=== PATIENT | female | born 1940 | race African-American/Black ===

== ENCOUNTER → 2016-04-22 | Outpatient (CLI) | payer BC ==
[~2016-04-22] MED LIST: ALBUAER19 INH; ESTR1CRE PV; LISI-725 PO; LPT/40 PO; MOME50SP5; MULT-506 PO; OMEG10007 PO; PRLSR20 PO; SERT100T PO; TUMERIC PO; [UNRECOGNIZED DRUG - CODE] PO; [UNRECOGNIZED DRUG - OTHER] TOP
[2016-04-22 12:44] LABS: ESTIMATED AVERAGE GLUCOSE 131 mg/dl; HA1C FLAG Normal (Normal)
== END | disposition home or self-care (01) ==
LOC: C.LAB1850 10:47
PROVIDERS: ATTEND Internal Medicine
DX: E78.00 Pure hypercholesterolemia, unspecified (principal); E11.9 Type 2 diabetes mellitus without complications

== ENCOUNTER → 2016-07-22 | Outpatient (CLI) | payer BC ==
[2016-07-22 12:27] LABS: BASO % 0.2 %; BASO ABS # 0.02 K/uL (0-0.2); COMPLETE YES; EOS % 0.8 %; HEMATOCRIT 48.6 % (37-47); IG% 0.2 %; LYMPH % 18.7 %; LYMPH ABS # 2.44 K/uL (1.2-3.4); MEAN CELL VOLUME 88.8 fL (80-100); MEAN CORPUSCULAR HEMOGLOBIN 28.7 pg (25-34); MEAN CORPUSCULAR HGB CONC 32.3 g/dl (32-36); MEAN PLATELET VOLUME 9.5 fL (7.4-10.4); MONO % 6.7 %; NEUT % 73.4 %; PLATELET COUNT 276 K/uL (130-400); RED BLOOD COUNT 5.47 M/uL (4.2-5.4); WHITE BLOOD COUNT 13.06 K/uL (4.8-10.8)
[2016-07-22 12:41] LABS: ALT/SGPT 65 U/L (12-78); AST/SGOT 38 U/L (15-37); BLOOD UREA NITROGEN 61 mg/dl (7-18); BUN/CREATININE RATIO 27.8 (10-20); CALCIUM 9.6 mg/dl (8.5-10.1); CARBON DIOXIDE 21 mmol/L (21-32); CHLORIDE 110 mmol/L (98-107); GLUCOSE 116 mg/dl (70-99); POTASSIUM 4.6 mmol/L (3.5-5.1); SODIUM 140 mmol/L (136-145)
[2016-07-22 12:52] LABS: CHOLESTEROL 192 mg/dl (0-200); HDL CHOLESTEROL 64 mg/dl; LDL CHOLESTEROL CALCULATED 112 mg/dl; TRIGLYCERIDES 80 mg/dl (0-150); VERY LOW DENSITY LIPOPROT CALC 16 mg/dl
[2016-07-22 13:29] LABS: ESTIMATED AVERAGE GLUCOSE 126 mg/dl; HA1C FLAG Normal (Normal)
== END | disposition home or self-care (01) ==
LOC: C.LAB1850 10:31
PROVIDERS: ATTEND Internal Medicine
DX: E11.9 Type 2 diabetes mellitus without complications (principal)

== ENCOUNTER → 2016-10-29 | Outpatient (CLI) | payer BC ==
[2016-10-29 15:59] LABS: BLOOD UREA NITROGEN 38 mg/dl (7-18); BUN/CREATININE RATIO 16.4 (10-20); CALCIUM 9.7 mg/dl (8.5-10.1); CARBON DIOXIDE 23 mmol/L (21-32); CHLORIDE 109 mmol/L (98-107); GLUCOSE 91 mg/dl (70-99); POTASSIUM 3.9 mmol/L (3.5-5.1); SODIUM 142 mmol/L (136-145)
[2016-10-30 08:22] LABS: ESTIMATED AVERAGE GLUCOSE 126 mg/dl; HA1C FLAG Normal (Normal)
== END | disposition home or self-care (01) ==
LOC: C.LAB1850 13:45
PROVIDERS: ATTEND Internal Medicine
DX: E11.9 Type 2 diabetes mellitus without complications (principal)

== ENCOUNTER → 2016-12-21 | Outpatient (CLI) | payer BC ==
[2016-12-21 13:11] LABS: BASO % 0.2 %; BASO ABS # 0.02 K/uL (0-0.2); COMPLETE YES; EOS % 1.4 %; HEMATOCRIT 49.1 % (37-47); IG% 0.3 %; LYMPH % 31.6 %; LYMPH ABS # 3.02 K/uL (1.2-3.4); MEAN CELL VOLUME 92.5 fL (80-100); MEAN CORPUSCULAR HEMOGLOBIN 28.6 pg (25-34); MEAN PLATELET VOLUME 9.5 fL (7.4-10.4); MONO % 6.6 %; NEUT % 59.9 %; PLATELET COUNT 302 K/uL (130-400); RED BLOOD COUNT 5.31 M/uL (4.2-5.4); WHITE BLOOD COUNT 9.55 K/uL (4.8-10.8)
[2016-12-21 13:48] LABS: BLOOD UREA NITROGEN 54 mg/dl (7-18); BUN/CREATININE RATIO 20.9 (10-20); CALCIUM 10.1 mg/dl (8.5-10.1); CARBON DIOXIDE 24 mmol/L (21-32); CHLORIDE 104 mmol/L (98-107); GLUCOSE 104 mg/dl (70-99); POTASSIUM 3.7 mmol/L (3.5-5.1); SODIUM 138 mmol/L (136-145)
== END | disposition home or self-care (01) ==
LOC: C.LAB1850 11:29
PROVIDERS: ATTEND Internal Medicine
DX: F32.9 Major depressive disorder, single episode, unspecified (principal)

== ENCOUNTER → 2017-02-10 | Outpatient (CLI) | payer BC ==
[2017-02-10 17:22] LABS: BASO % 0.4 %; BASO ABS # 0.03 K/uL (0-0.2); COMPLETE YES; HEMATOCRIT 44.4 % (37-47); IG% 0.3 %; LYMPH % 27.2 %; LYMPH ABS # 2.09 K/uL (1.2-3.4); MEAN CORPUSCULAR HEMOGLOBIN 28.9 pg (25-34); MEAN CORPUSCULAR HGB CONC 32.4 g/dl (32-36); NEUT % 61.1 %; PLATELET COUNT 255 K/uL (130-400); RED BLOOD COUNT 4.99 M/uL (4.2-5.4); WHITE BLOOD COUNT 7.69 K/uL (4.8-10.8)
[2017-02-10 18:05] LABS: ALT/SGPT 40 U/L (12-78); AST/SGOT 36 U/L (15-37); BLOOD UREA NITROGEN 25 mg/dl (7-18); BUN/CREATININE RATIO 13.4 (10-20); CALCIUM 9.7 mg/dl (8.5-10.1); CARBON DIOXIDE 21 mmol/L (21-32); CHLORIDE 111 mmol/L (98-107); CREATININE 1.84 mg/dl (0.60-1.20); GLUCOSE 108 mg/dl (70-99); SODIUM 141 mmol/L (136-145)
[2017-02-10 18:16] LABS: CHOLESTEROL 154 mg/dl (0-200); CHOLESTEROL/HDL RATIO 3.9; HDL CHOLESTEROL 40 mg/dl; LDL CHOLESTEROL CALCULATED 85 mg/dl; TRIGLYCERIDES 145 mg/dl (0-150); VERY LOW DENSITY LIPOPROT CALC 29 mg/dl
[2017-02-11 06:53] LABS: ESTIMATED AVERAGE GLUCOSE 128 mg/dl; HA1C FLAG Normal (Normal)
== END | disposition home or self-care (01) ==
LOC: C.LAB1850 16:01
PROVIDERS: ATTEND Internal Medicine
DX: E11.9 Type 2 diabetes mellitus without complications (principal)

== ENCOUNTER → 2017-03-26 | Outpatient (CLI) | payer BC | END | disposition home or self-care (01) | LOC: C.PAPS 11:55 | PROVIDERS: ATTEND Obstetrics & Gynecology | DX: Z12.4 Encounter for screening for malignant neoplasm of cervix (principal) ==

== ENCOUNTER → 2017-03-30 | Outpatient (CLI) | payer BC ==
--- NOTE | 2017-03-31 13:40 | MAMMOGRAPHY REPORT ---
BILATERAL DIGITAL SCREENING MAMMOGRAM WITH CAD: 03/30/2017 CLINICAL HISTORY: Routine screening. Patient has no complaints. TECHNIQUE: Bilateral CC and MLO views were obtained. Additional MLO views were obtained with more an terior compression and a right XCCL view was also obtained. Current study was also evaluated with a Computer Aided Detection (CAD) system. COMPARISON: Comparison is made to exams dated: 10/29/2015 mammogram, 10/25/2014 mammogram, 10/24/2013 m ammogram, 10/21/2012 mammogram, 10/02/2011 mammogram, and 06/27/2010 mammogram - [facility]. BREAST COMPOSITION: The tissue of both breasts is almost entirely fatty. FINDINGS: There are stable benign calcifications in the right breast. No suspicious mass, big data platform architect ural distortion or cluster of suspicious microcalcifications is seen. IMPRESSION: ACR BI-RADS CATEGORY 1: NEGATIVE There is no mammographic evidence of malignancy. A 1 year screening mammogram is recommended. The pa tient will receive written notification of the results. Approximately 10% of breast cancers are not detected with mammography. A negative mammographic report should not delay biopsy if a clinically suggestive mass is present. Elizabeth Gardner M.D. ay/:03/30/2017 15:30:50 Business Performance Advisor: Paris GORE(Tara)(M), [facility] letter sent: Normal 1/2 BI-RADS Code: ACR BI-RADS Category 1: Negative
== END | disposition home or self-care (01) ==
LOC: C.MAMM 14:19
PROVIDERS: ATTEND Internal Medicine
DX: Z12.31 Encounter for screening mammogram for malignant neoplasm of breast (principal)

== ENCOUNTER → 2017-11-19 | Outpatient (CLI) | payer BC ==
--- NOTE | 2017-11-19 13:36 | DIAGNOSTIC IMAGING REPORT ---
L WRIST MIN 3 VIEWS ROUTINE CLINICAL HISTORY: 77 years-old Female presenting with LEFT WRIST PAIN, ACUTE. TECHNIQUE: Frontal, bilateral, and lateral views of the left wrist were obtained. COMPARISON: None. FINDINGS: Osteopenia. No acute fracture or malalignment. No advanced degenerative change. No radiographic soft tissue abnormality. IMPRESSION: No acute osseous injury. Electronically signed by: Suresh Josue M.D. 11/19/2017 1:34 PM Dictated Date/Time: 11/19/2017 1:33 PM
== END | disposition home or self-care (01) ==
LOC: C.RAD1850 13:13
PROVIDERS: ATTEND Physician Assistant Medical
DX: M25.532 Pain in left wrist (principal)

== ENCOUNTER 2019-05-09 15:53 | Observation (INO) ==
[2019-05-09] MEDS ORDERED: SODIUM CHLORIDE 0.9% 1000ML 500 ML IV ONE (16:17)
--- NOTE | 2019-05-09 16:39 | Emergency Department Note ---
Entered by Haydee Candelaria acting as a scribe for León Tran DO History of Present Illness General Chief complaint: Lethargic Stated complaint: WEAK, LETHARGIC, Time Seen by Provider: 05/09/19 16:11 Source: patient History of Present Illness Provider complaint: Lethargic Onset (ago): hour(s) 1 Location: upper extremity and lower extremity Relieved By: + none Exacerbated By: + movement Associated symptoms: + denies other symptoms (Rhinorrhea, sore throat ); no chest pain, no cough, no headaches and no shortness of breath The patient is a 79 year old female who presents to the Emergency Room with complaints of generalized lethargy that began 1 hour ago. According to EMS, the patient was found by a home health commercial cleaner on her floor and registered a blood sugar of 149 when EMS arrived. The patient states that her symptoms are exacerbated by movement and not relieved by anything specific. The patient denies experiencing any chest pain, shortness of breath, rhinorrhea, sore throat, cough, or headache. Home Medications Home Medications Medication Instructions Recorded Confirmed Type albuterol sulfate 90 mcg/actuation 2 puffs INHALATION Q4H PRN #1 gm 12/27/18 History aerosol inhaler atorvastatin 40 mg tablet 40 mg PO DAILY #90 tab 12/27/18 05/09/19 History mometasone 50 mcg/actuation nasal 2 sprays INTRANASAL DAILY #51 gm 12/27/18 05/09/19 History spray omeprazole 20 mg tablet,delayed 20 mg PO DAILY PRN #90 tab 12/27/18 05/09/19 Hi story release cholecalciferol (vitamin D3) 2,000 2,000 units PO DAILY 03/17/19 05/09/19 Histo ry unit tablet coenzyme Q10 200 mg capsule 200 mg PO DAILY 03/17/19 05/09/19 History multivitamin 1 tab PO DAILY 03/17/19 05/09/19 History lisinopril 20 mg tablet 20 mg PO DAILY #90 tab 04/21/19 05/09/19 Rx bupropion HCl 100 mg tablet 100 mg PO BID #60 tab 04/25/19 05/09/19 Rx cinnamon bark 500 mg PO DAILY 05/09/19 05/09/19 History turmeric 400 mg PO DAILY 05/09/19 05/09/19 History Allergies Allergy/AdvReac Type Severity Reaction Status Date / Time Penicillins Allergy Mild UNKNOWN Verified 05/09/19 16:50 Iodinated Contrast Media Allergy Unknown TOLD BY Verified 05/09/19 16:50 NOT TO USE CONTRAST DYE Halogenated Anesthetics AdvReac Unknown INTUBATION Uncoded 05/09/19 16:50 GASES-PROLONGED RECOVERY Past Med/Surg History Medical History CKD (chronic kidney disease), stage III Depression (Chronic) Diabetes, type 1.5, controlled, managed as type 2 Fall GERD (gastroesophageal reflux disease) HTN (hypertension) Hypercholesterolemia with endogenous hyperglyceridemia Surgical History History of cataract surgery History of tonsillectomy History of total abdominal hysterectomy Family History Sister Bone cancer Social History Preferred Language: Swedish Feels Safe at Home: Yes Smoking Status: Never smoker Hx Alcohol Use: No Physical Activity Frequency: Does not Exercise Review of Systems See HPI for pertinent positives & negatives. and A total of 10 systems reviewed and were otherwise negative Physical Exam Vital Signs Vital Signs - 24 hr 05/09/19 16:02 05/09/19 16:07 05/09/19 16:09 Temperature 35.9 C L Temperature Source Rectal Pulse Rate 74 74 68 Pulse Rate from SpO2 Sensor 71 69 Respiratory Rate 14 17 16 Respiratory Effort / Characteristics Non-Labored Spontaneous Respiratory Depth Normal Respiratory Pattern Regular Blood Pressure 113/58 L 113/58 L Blood Pressure Mean 90 76 Blood Pressure Position Lying Pulse Oximetry 95 96 97 Oxygen Delivery Method Room Air Sepsis Recent Fever Within 48 Hours No Sepsis Action Taken by Nursing No Action Required 05/09/19 16:10 05/09/19 16:16 05/09/19 16:20 Temperature Temperature Source Pulse Rate 68 68 72 Pulse Rate from SpO2 Sensor 68 68 73 Respiratory Rate 22 18 20 Respiratory Effort / Characteristics Respiratory Depth Respiratory Pattern Blood Pressure 118/41 L Blood Pressure Mean 54 Blood Pressure Position Pulse Oximetry 93 97 96 Oxygen Delivery Method Sepsis Recent Fever Within 48 Hours Sepsis Action Taken by Nursing 05/09/19 16:30 05/09/19 16:31 05/09/19 16:40 Temperature Temperature Source Pulse Rate 69 70 68 Pulse Rate from SpO2 Sensor 69 67 Respiratory Rate 19 19 20 Respiratory Effort / Characteristics Respiratory Depth Respiratory Pattern Blood Pressure 104/42 L Blood Pressure Mean 84 Blood Pressure Position Pulse Oximetry 100 100 Oxygen Delivery Method Sepsis Recent Fever Within 48 Hours Sepsis Action Taken by Nursing 05/09/19 17:22 05/09/19 17:23 05/09/19 17:30 Temperature Temperature Source Pulse Rate 60 58 L 53 L Pulse Rate from SpO2 Sensor Respiratory Rate 18 17 17 Respiratory Effort / Characteristics Respiratory Depth Respiratory Pattern Blood Pressure 115/71 122/58 L Blood Pressure Mean 80 70 Blood Pressure Position Pulse Oximetry Oxygen Delivery Method Sepsis Recent Fever Within 48 Hours Sepsis Action Taken by Nursing 05/09/19 17:31 05/09/19 18:00 05/09/19 18:01 Temperature Temperature Source Pulse Rate 58 L 73 68 Pulse Rate from SpO2 Sensor Respiratory Rate 17 15 17 Respiratory Effort / Characteristics Respiratory Depth Respiratory Pattern Blood Pressure 119/63 Blood Pressure Mean 73 Blood Pressure Position Pulse Oximetry Oxygen Delivery Method Sepsis Recent Fever Within 48 Hours Sepsis Action Taken by Nursing 05/09/19 18:30 05/09/19 18:31 Temperature Temperature Source Pulse Rate 64 67 Pulse Rate from SpO2 Sensor Respiratory Rate 18 15 Respiratory Effort / Characteristics Respiratory Depth Respiratory Pattern Blood Pressure 129/64 Blood Pressure Mean 70 Blood Pressure Position Pulse Oximetry Oxygen Delivery Method Sepsis Recent Fever Within 48 Hours Sepsis Action Taken by Nursing VITAL SIGNS: were reviewed as above. GENERAL:Non-toxic in appearance. Generalized weakness. SKIN: Warm dry and pink. HEAD: Normocephalic and atraumatic. OROPHARYNX: Is clear and moist NECK: Supple without lymphadenopathy or meningismus. LUNGS: clear. HEART: Regular rate and rhythm. ABDOMEN: Soft and nontender. EXTREMITIES: Warm and well perfused. NEUROLOGICALLY: Awake alert and oriented without focal deficit. Cranial nerves 2-12 are intact. There is no pronator drift. Cerebellar testing is within normal limits. There is no nystagmus. There is no facial droop. Speech is clear. Vision is grossly normal. MUSCULOSKELETAL: Good muscle tone. No evidence of trauma. Course Course 161: Past medical records reviewed. The patient was evaluated in room C10. A complete history and physical exam was performed. 1847: I spoke with Dr. John- Hospitalist about the patient's case and he will accept the patient for further evaluation. Administered Medications Discontinued Medications Sodium Chloride (Nss 1000ml) 500 mls @ 999 mls/hr IV .Q31M ONE Stop: 05/09/19 16:47 Last Infusion: 05/09/19 17:19 Dose: 0 mls/hr Documented by: [id number] Admin: 05/09/19 16:20 Dose: 999 mls/hr Documented by: [id number] Medical Decision Making Differential Diagnosis Differential Diagnosis includes but is not limited to dehydration, stroke, anemia, hypoglycemia, hyponatremia, hypernatremia, urinary tract infection, pneumonia, bronchitis, sepsis, gastroenteritis, additional abdominal pathology, metabolic abnormalities and infections. Medical Records Attestation: I reviewed the patient's medical records. Home Medications Current Medication List: was personally reviewed by me Laboratory Data Attestation: I reviewed the patient's lab results. Result diagrams: 05/09/19 16:31 05/09/19 16:31 Lab Results 05/09/19 05/09/19 05/09/19 Range/Units 16:31 16:31 16:31 WBC 11.21 H (4.8-10.8) K/uL RBC 4.98 (4.2-5.4) M/uL Hgb 14.2 (12.0-16.0) g/dL Hct 43.1 (37-47) % MCV 86.5 (80-100) fL MCH 28.5 (25-34) pg MCHC 32.9 (32-36) g/dL RDW Std Deviation 44.7 (36.4-46.3) fL RDW Coeff of Alicja 14.2 (11.5-14.5) % Plt Count 221 (130-400) K/uL MPV 8.8 (7.4-10.4) fL Immature Gran % (Auto) 0.4 % Neut % (Auto) 69.2 % Lymph % (Auto) 22.9 % [place] % (Auto) 5.9 % Eos % (Auto) 1.4 % Baso % (Auto) 0.2 % Immature Gran # (Auto) 0.04 H (0.00-0.02) K/uL Neut # (Auto) 7.76 H (1.4-6.5) K/uL Lymph # (Auto) 2.57 (1.2-3.4) K/uL [place] # (Auto) 0.66 H (0.11-0.59) K/uL Eos # (Auto) 0.16 (0-0.5) K/uL Baso # (Auto) 0.02 (0-0.2) K/uL PT 11.9 (9.0-12.0) Seconds INR 1.2 H (0.9-1.1) Sodium 141 (136-145) mmol/L Potassium 3.8 (3.5-5.1) mmol/L Chloride 113 H (98-107) mmol/L Carbon Dioxide 19 L (21-32) mmol/L Anion Gap 9.0 (3-11) BUN 22 H (7-18) mg/dl Creatinine 2.34 H (0.6-1.2) mg/dl Est Cr Clr Drug Dosing 20.9 ml/min Est GFR ( Amer) 22.5 Est GFR (Non-Af Amer) 19.4 BUN/Creatinine Ratio 9.2 L (10-20) Glucose 146 H (70-99) mg/dl Lactate (0.4-2.0) mmol/L Calcium 10.3 H (8.5-10.1) mg/dl Total Bilirubin 0.6 (0.2-1) mg/dl AST 23 (15-37) U/L ALT 27 (12-78) U/L Alkaline Phosphatase 102 (45-117) U/L Ammonia (11-32) umol/L Total Creatine Kinase 98 (26-192) U/L Troponin I < 0.015 (0-0.045) ng/ml Total Protein 6.9 (6.4-8.2) gm/dl Albumin 3.4 (3.4-5.0) gm/dl Globulin 3.5 (2.5-4.0) gm/dl Albumin/Globulin Ratio 1.0 (0.9-2) TSH 5.470 H (0.300-4.500) uIu/ml Free T4 1.03 (0.8-1.6) ng/dl Urine Color Urine Appearance (Clear) Urine pH (4.5-7.5) Ur Specific [place] (1.000-1.030) Urine Protein (Negative) Urine Glucose (UA) (Negative) Urine Ketones (Negative) Urine Blood (Negative) Urine Nitrite (Negative) Urine Bilirubin (Negative) Urine Urobilinogen (Negative) Ur Leukocyte Esterase (Negative) Urine WBC (Auto) (0-5) /hpf Urine RBC (Auto) (0-4) /hpf U Hyaline Cast (Auto) (0-5) /lpf U Epithel Cells (Auto) (0-5) /lpf Urine Bacteria (Auto) (Negative) Urine Mucus (None Prsent) 05/09/19 05/09/19 05/09/19 Range/Units 16:31 16:31 18:00 WBC (4.8-10.8) K/uL RBC (4.2-5.4) M/uL Hgb (12.0-16.0) g/dL Hct (37-47) % MCV (80-100) fL MCH (25-34) pg MCHC (32-36) g/dL RDW Std Deviation (36.4-46.3) fL RDW Coeff of Alicja (11.5-14.5) % Plt Count (130-400) K/uL MPV (7.4-10.4) fL Immature Gran % (Auto) % Neut % (Auto) % Lymph % (Auto) % [place] % (Auto) % Eos % (Auto) % Baso % (Auto) % Immature Gran # (Auto) (0.00-0.02) K/uL Neut # (Auto) (1.4-6.5) K/uL Lymph # (Auto) (1.2-3.4) K/uL [place] # (Auto) (0.11-0.59) K/uL Eos # (Auto) (0-0.5) K/uL Baso # (Auto) (0-0.2) K/uL PT (9.0-12.0) Seconds INR (0.9-1.1) Sodium (136-145) mmol/L Potassium (3.5-5.1) mmol/L Chloride (98-107) mmol/L Carbon Dioxide (21-32) mmol/L Anion Gap (3-11) BUN (7-18) mg/dl Creatinine (0.6-1.2) mg/dl Est Cr Clr Drug Dosing ml/min Est GFR ( Amer) Est GFR (Non-Af Amer) BUN/Creatinine Ratio (10-20) Glucose (70-99) mg/dl Lactate 2.5 H* (0.4-2.0) mmol/L Calcium (8.5-10.1) mg/dl Total Bilirubin (0.2-1) mg/dl AST (15-37) U/L ALT (12-78) U/L Alkaline Phosphatase (45-117) U/L Ammonia 13.0 (11-32) umol/L Total Creatine Kinase (26-192) U/L Troponin I (0-0.045) ng/ml Total Protein (6.4-8.2) gm/dl Albumin (3.4-5.0) gm/dl Globulin (2.5-4.0) gm/dl Albumin/Globulin Ratio (0.9-2) TSH (0.300-4.500) uIu/ml Free T4 (0.8-1.6) ng/dl Urine Color Dark Yellow Urine Appearance Clear (Clear) Urine pH 5.5 (4.5-7.5) Ur Specific [place] 1.016 (1.000-1.030) Urine Protein 1+ H (Negative) Urine Glucose (UA) Negative (Negative) Urine Ketones Trace H (Negative) Urine Blood Negative (Negative) Urine Nitrite Negative (Negative) Urine Bilirubin Negative (Negative) Urine Urobilinogen Negative (Negative) Ur Leukocyte Esterase Trace H (Negative) Urine WBC (Auto) 1-5 (0-5) /hpf Urine RBC (Auto) 0-4 (0-4) /hpf U Hyaline Cast (Auto) 10-30 H (0-5) /lpf U Epithel Cells (Auto) 20-30 H (0-5) /lpf Urine Bacteria (Auto) 1+ H (Negative) Urine Mucus Present A (None Prsent) Imaging Data Radiologist's Impression: Radiology results as stated below per my review and the radiologist's interpretation: SINGLE VIEW CHEST CLINICAL HISTORY: Generalized weakness. FINDINGS: An AP, portable, upright chest radiograph is compared to study dated 02/27/2008. The examination is degraded by portable technique and patient rotation. The cardiomediastinal silhouette is unremarkable noting atherosclerotic calcification of the thoracic aorta. There is mild bibasilar atelectasis. The lungs and pleural spaces are otherwise clear. No pneumothorax is seen. The skeletal structures are osteopenic. The bony thorax is grossly intact. IMPRESSION: No active disease in the chest. ACT 112: Negative or not required by law. Electronically signed by: Sergey Rivera M.D. 05/09/2019 4:[address] SCAN OF THE BRAIN WITHOUT IV CONTRAST CLINICAL HISTORY: Lethargy. COMPARISON STUDY: No priors. TECHNIQUE: Unenhanced axial CT scan of the brain is performed from the vertex to the skull base. A dose lowering technique was utilized adhering to the princi ples of ZUNILDA. The vertex was scanned twice due to motion artifact. 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 There are age-related involutional changes noting mild to moderate subcortical and periventricular microangiopathic change. There is no hemorrhage, mass effect, or evidence of acute territorial ischemia by CT criteria. Cm- white matter differentiation is preserved. No extra-axial fluid collection is seen. Ventricles, sulci, cisterns: Prominent secondary to involutional change. Intracranial vasculature: There is atherosclerotic calcification of the cavernous carotid and vertebral arteries. Calvarium: Unremarkable. Sinuses and mastoids: The visualized paranasal sinuses are clear. The mastoid air cells are well pneumatized. Orbits: The bony orbits are grossly intact. There are bilateral ocular lens implants. IMPRESSION: There is no hemorrhage, mass effect, or evidence of acute territorial ischemia by CT criteria. ACT 112: Negative or not required by law. Electronically signed by: Sergey Rivera M.D. 05/09/2019 4:59 PM ECG Data Indication: + weakness Rate (beats per minute): 68 Rhythm: + normal sinus ECG Intervals/blocks: + Normal QT-c ECG ST segments: no ST elevation ECG Findings: no PVCs Blood Pressure Blood Pressure Findings: Low blood pressure Blood Pressure Disposition: further management by hospitalist CALEB Streeter This is a 79-year-old female who presents to the ED with a chief complaint of weakness. The patient was at her home when a home commercial cleaner came and found her on the floor. EMS was called and she was found to have a blood sugar of 149. The patient was transported here for further evaluation. The patient only complains of feeling really tired. She denies headaches, recent upper respiratory illnesses or cough, chest pains or shortness of breath, abdominal pains or other symptoms. She only complains of feeling tired. Her neurologic exam was normal and a physical exam was unremarkable other than generalized fatigue or tiredness. The patient's twelve-lead EKG shows normal sinus rhythm at a rate of 68. Her vital signs are stable. Her temperature was slightly low at 35.9. A bear hugger was placed by the nurses. The patient's chest x-ray and CT scan of the brain was negative for acute disease. CBC is unremarkable. Lactic acid level slightly elevated. Troponin was negative. Complete metabolic panel was unremarkable. BUN is 22 and creatinine is 2.3. This was relatively baseline for the patient. She was given 500 cc normal saline bolus. Because I am for severe weakness, she will be seen by the hospitalist for further evaluation and care. Impression & Plan Acute dehydration, Weakness, Hypothermia, Adult failure to thrive Discharge Plan Visit Data Chief Complaint: Lethargic Stated Complaint: WEAK, LETHARGIC, ED Provider: León Tran Discharge Problem: Acute dehydration, Weakness, Hypothermia, Adult failure to thrive Forms Stand Alone Forms: My [facility] Prescriptions Prescriptions: No Action bupropion HCl 100 mg tablet 100 mg PO BID Qty: 60 RF: 3 lisinopril 20 mg tablet 20 mg PO DAILY Qty: 90 RF: 3 mometasone 50 mcg/actuation spray,non-aerosol 2 sprays intranasal DAILY Qty: 51 RF: 0 albuterol sulfate 90 mcg/actuation HFA aerosol inhaler 2 puffs inhalation Q4H PRN (Reason: shortness of breath or wheezing) Qty: 1 RF: 0 omeprazole 20 mg tablet,delayed release (DR/EC) 20 mg PO DAILY PRN (Reason: HEARTBURN/INDIGESTION) Qty: 90 RF: 0 atorvastatin 40 mg tablet 40 mg PO DAILY Qty: 90 RF: 0 multivitamin [Daily Multi-Vitamin] tablet 1 tab PO DAILY RF: 0 coenzyme Q10 200 mg capsule 200 mg PO DAILY RF: 0 cholecalciferol (vitamin D3) 2,000 unit tablet 2,000 units PO DAILY RF: 0 cinnamon bark 500 mg Capsule 500 mg PO DAILY RF: 0 turmeric 400 mg Capsule 400 mg PO DAILY RF: 0 Discharge Problem: Hypothermia Qualifiers: Encounter type: initial encounter Qualified Code(s): T68.XXXA - Hypothermia, initial encounter The scribe's documentation has been prepared under my direction and personally reviewed by me in its entirety. I confirm that the note above accurately reflects all work, treatment, procedures, and medical decision making performed by me.
[2019-05-09 16:44] LABS: Basophils # (auto) 0.02 K/uL (0-0.2); Basophils % (auto) 0.2 %; Eosinophils # (auto) 0.16 K/uL (0-0.5); Eosinophils % (auto) 1.4 %; Hematocrit (blood only) 43.1 % (37-47); Hemoglobin 14.2 g/dL (12.0-16.0); Immature Granulocytes # (auto) 0.04 K/uL (0.00-0.02); Immature Granulocytes % (auto) 0.4 %; Lymphocytes # (auto) 2.57 K/uL (1.2-3.4); Lymphocytes % (auto) 22.9 %; Mean Corpuscular Hemoglobin 28.5 pg (25-34); Mean Corpuscular Hgb Conc 32.9 g/dL (32-36); Mean Corpuscular Volume 86.5 fL (80-100); Mean Platelet Volume 8.8 fL (7.4-10.4); Monocytes # (auto) 0.66 K/uL (0.11-0.59); Monocytes % (auto) 5.9 %; Neutrophils # (auto) 7.76 K/uL (1.4-6.5); Neutrophils % (auto) 69.2 %; Platelet Count 221 K/uL (130-400); RDW Coefficient of Variation 14.2 % (11.5-14.5); RDW Standard Deviation 44.7 fL (36.4-46.3); Red Blood Count 4.98 M/uL (4.2-5.4); White Blood Count 11.21 K/uL (4.8-10.8)
[2019-05-09 16:58] LABS: INR 1.2 (0.9-1.1); Prothrombin Time 11.9 Seconds (9.0-12.0)
--- NOTE | 2019-05-09 16:58 | XRay Report ---
SINGLE VIEW CHEST CLINICAL HISTORY: Generalized weakness. FINDINGS: An AP, portable, upright chest radiograph is compared to study dated 02/27/2008. The examin ation is degraded by portable technique and patient rotation. The cardiomediastinal silhouette is unr emarkable noting atherosclerotic calcification of the thoracic aorta. There is mild bibasilar atelect asis. The lungs and pleural spaces are otherwise clear. No pneumothorax is seen. The skeletal structu res are osteopenic. The bony thorax is grossly intact. IMPRESSION: No active disease in the chest. ACT 112: Negative or not required by law. Electronically signed by: Sergey Rivera M.D. 05/09/2019 4:57 PM
--- NOTE | 2019-05-09 17:01 | CT Scan Report ---
CT SCAN OF THE BRAIN WITHOUT IV CONTRAST CLINICAL HISTORY: Lethargy. COMPARISON STUDY: No priors. TECHNIQUE: Unenhanced axial CT scan of the brain is performed from the vertex to the skull base. A do se lowering technique was utilized adhering to the principles of ALARA. The vertex was scanned twice due to motion artifact. 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 There are age-re lated involutional changes noting mild to moderate subcortical and periventricular microangiopathic change. There is no hemorrhage, mass effect, or evidence of acute territorial ischemia by CT criteria . Cm-white matter differentiation is preserved. No extra-axial fluid collection is seen. Ventricles, sulci, cisterns: Prominent secondary to involutional change. Intracranial vasculature: There is atherosclerotic calcification of the cavernous carotid and vertebr al arteries. Calvarium: Unremarkable. Sinuses and mastoids: The visualized paranasal sinuses are clear. The mastoid air cells are well pneu matized. Orbits: The bony orbits are grossly intact. There are bilateral ocular lens implants. IMPRESSION: There is no hemorrhage, mass effect, or evidence of acute territorial ischemia by CT timmy monterroso. ACT 112: Negative or not required by law. Electronically signed by: Sergey Rivera M.D. 05/09/2019 4:59 PM
[2019-05-09 17:07] LABS: Alanine Aminotransferase 27 U/L (12-78); Albumin Level 3.4 gm/dl (3.4-5.0); Aspartate Aminotransferase 23 U/L (15-37); BUN Creatinine Ratio 9.2 (10-20); Blood Urea Nitrogen 22 mg/dl (7-18); Calcium 10.3 mg/dl (8.5-10.1); Carbon Dioxide 19 mmol/L (21-32); Chloride 113 mmol/L (98-107); Creatinine Clr Calc Pharmacy 20.9 ml/min; Est GFR (African American) 22.5; Est GFR (Non-African American) 19.4; Glucose 146 mg/dl (70-99); Potassium 3.8 mmol/L (3.5-5.1); Sodium 141 mmol/L (136-145)
[2019-05-09 17:17] LABS: Alkaline Phosphatase 102 U/L (45-117); Bilirubin,Total 0.6 mg/dl (0.2-1); Creatine Kinase 98 U/L (26-192); Globulin 3.5 gm/dl (2.5-4.0); Total Protein 6.9 gm/dl (6.4-8.2); Troponin I < 0.015 ng/ml (0-0.045)
[2019-05-09 17:29] LABS: T4 Free Thyroxine 1.03 ng/dl (0.8-1.6)
[2019-05-09 18:18] LABS: Appearance Urine Clear (Clear); Bilirubin Urine Negative (Negative); Blood Urine Negative (Negative); Color Urine Dark Yellow; Epithelial Cell Urine Auto 20-30 /lpf (0-5); Glucose Urine UA Negative (Negative); Ketones Urine Trace (Negative); Leukocyte Esterase Urine Trace (Negative); Nitrite Urine Negative (Negative); Protein Urine 1+ (Negative); RBC Urine Automated 0-4 /hpf (0-4); Specific Gravity Urine 1.016 (1.000-1.030); Urobilinogen Urine Negative (Negative); pH Urine 5.5 (4.5-7.5)
[2019-05-09 18:31] LABS: Mucus Urine Present (None Prsent)
[2019-05-09 18:32] LABS: Bacteria Urine Automated 1+ (Negative)
--- NOTE | 2019-05-09 19:09 | History & Physical Report ---
Date of Service May 09, 2019 Assessment & Plan (1) Syncope: Admit to med/surg with telemetry to monitor for arrhythmia. Orthostatics qshift starting tomorrow - hold lisinopril as below. LR 125 ml/hr. No murmur or carotid bruit to suggest need for TTE or carotid US unless she is stll dizzy despite adequate hydration Minimally elevated WBC likely non-contributory without source would defer antibiotics for now. Blood and urine cultures pending. (2) Acute dehydration: Elevated Ca, Cr and BUN suggestive of dehydration although patient notes no change in her appetite and she feels she is keeping hydrated at home. LR 125ml/hr, repeat BMP in AM. (3) CKD (chronic kidney disease), stage III: Borderline CKD stage III/IV at baseline. Acutely elevated creatinine but significantly raised enough for OZZIE but see dehydration as above. Mild pelvocaliectasis of right renal collecting system noted on US in April however no CVA tenderness on exam or urinary Sx therefore will defer CT A/P w/o contrast unless creatinine does not improve with gentle hydration (4) Fatigue: Patient feeling fatigued at present but this appear to be chronic and suspected related to her depression from prior PCP notes. However patient feels her depression currently under control with bupropion therefore will get vitamin D and B12 levels in AM. No MAINE on recent sleep study. Possibly related to her renal and possible hepatic disease. Since her fatigue is mostly chronic I do not feel she needs an extensive workup at this time however vitamin levels warranted as her fatigue could effect her rehab potential. (5) Abnormal liver ultrasound: Hepatic steatosis vs. fibrosis on recent O/P US. LFTs unremarkable. Plt 221. INR 1.2. Consider O/P fibrosure. (6) HTN (hypertension): Hold lisinopril pending orthostatics in AM following adequate hydration. (7) Depression: Continue bupropion 100mg BID (8) GERD (gastroesophageal reflux disease): PPI PRN (9) DVT prophylaxis: Heparin 5000 units BID (10) Discharge planning issues: PT/OT History of Present Illness Chief Complaint: Syncope Primary Care Provider: Judah Forbes MD Mignon Wolf is a 79 year old female with PMHx CKD who presents to the ER after a syncopal event at home witnessed by her trolley cleaner who called EMS. She was sitting on her steps writing a check when she started getting light-headed for a few minutes before losing consciousness. She felt dazed and mildly confused after the fall but regained back to her normal self while at her house. She denies any dizziness currently. No chest pain, shortness of breath, palpitations, claudication, orthopnea or PND. No urinary Sx. No URI Sx, fever or chills. No abdominal pain, nausea, vomiting, constipation, diarrhea or melena. Currently in the ER her only concern if feeling fatigued however this is at her baseline and she has been to see her PCP about this on her last at least 3 visits with a presumed diagnosis of depression causing her fatigue and switch from Zoloft to Wellbutrin which she reports if helping. Allergies Allergy/AdvReac Type Severity Reaction Status Date / Time Penicillins Allergy Mild UNKNOWN Verified 05/09/19 16:50 Iodinated Contrast Media Allergy Unknown TOLD BY MD Verified 05/09/19 16:50 NOT TO USE CONTRAST DYE Halogenated Anesthetics AdvReac Unknown INTUBATION Uncoded 05/09/19 16:50 GASES-PROLONGED RECOVERY Home Medications Home Medications Medication Instructions Recorded Confirmed Type albuterol sulfate 90 mcg/actuation 2 puffs INHALATION Q4H PRN #1 gm 12/27/18 05/09/19 History aerosol inhaler atorvastatin 40 mg tablet 40 mg PO DAILY #90 tab 12/27/18 05/09/19 History mometasone 50 mcg/actuation nasal 2 sprays INTRANASAL DAILY #51 gm 12/27/18 05/09/19 History spray omeprazole 20 mg tablet,delayed 20 mg PO DAILY PRN #90 tab 12/27/18 05/09/19 History release cholecalciferol (vitamin D3) 2,000 2,000 units PO DAILY 03/17/19 05/09/19 History unit tablet coenzyme Q10 200 mg capsule 200 mg PO DAILY 03/17/19 05/09/19 History multivitamin 1 tab PO DAILY 03/17/19 05/09/19 History lisinopril 20 mg tablet 20 mg PO DAILY #90 tab 04/21/19 05/09/19 Rx bupropion HCl 100 mg tablet 100 mg PO BID #60 tab 04/25/19 05/09/19 Rx cinnamon bark 500 mg PO DAILY 05/09/19 05/09/19 History turmeric 400 mg PO DAILY 05/09/19 05/09/19 History Past Med/Surg History Medical History CKD (chronic kidney disease), stage III Depression (Chronic) Diabetes, type 1.5, controlled, managed as type 2 Fall GERD (gastroesophageal reflux disease) HTN (hypertension) Hypercholesterolemia with endogenous hyperglyceridemia Surgical History History of cataract surgery History of tonsillectomy History of total abdominal hysterectomy Family History Sister Bone cancer Social History Preferred Language: Mongolian Assistant Financial Accountant Required: No Beliefs That Will Affect Care: None Current Living Situation: Alone Other Information That Helps Us Care for You: No Feels Safe at Home: Yes Safety Concerns: Feels Safe At This Time Smoking Status: Never smoker Do You Dip or Chew Tobacco: No ; Second Hand Exposure: No ; Tobacco Cessation Education Requested by Patient: No Hx Alcohol Use: No Hx Substance Use: No Physical Activity Frequency: Does not Exercise Review of Systems Review of Systems: All systems reviewed & are unremarkable except as noted in HPI & below Physical Exam Constitutional: well developed, well nourished and + obese; no acute distress Eyes: PERRL, conjunctivae normal, anicteric sclerae ENMT: external ear and nose normal, oropharynx normal Neck: trachea midline, no thyromegaly Respiratory: normal respiratory effort, lungs clear to auscultation Cardiovascular: RRR, no murmur, no edema Gastrointestinal (Abdomen): normal bowel sounds, soft, nontender, no hepa tosplenomegaly Musculoskeletal: no cyanosis or clubbing, extremities motor strength 5/5 (no groin pain on hip ext/int rotation) Spine: no cervical spinal tenderness, no thoracic spinal tenderness, no lumbar spinal tenderness and no paraspinal tenderness Skin: no rashes, warm and dry Neurologic: moves all extremities and awake; no focal motor deficits and not confused Speech / Cognition: normal speech Motor/Sensory: no tremor, no pronator drift and no sensory deficit Psychiatric: A+Ox3, euthymic affect Genitourinary: no CVA tenderness Lymphatic: no cervical or axillary lymphadenopathy Results & Data Vital Signs (Past 12 Hours) Vital Signs Temp Pulse Resp BP Pulse Ox 05/09/19 18:31 67 15 129/64 05/09/19 18:30 64 18 05/09/19 18:01 68 17 05/09/19 18:00 73 15 119/63 05/09/19 17:31 58 L 17 05/09/19 17:30 53 L 17 122/58 L 05/09/19 17:23 58 L 17 115/71 05/09/19 17:22 60 18 05/09/19 16:40 68 20 100 05/09/19 16:31 70 19 104/42 L 100 05/09/19 16:30 69 19 05/09/19 16:20 72 20 96 05/09/19 16:16 68 18 118/41 L 97 05/09/19 16:10 68 22 93 05/09/19 16:09 35.9 C L 68 16 113/58 L 97 05/09/19 16:07 74 17 96 05/09/19 16:02 74 14 113/58 L 95 Laboratory Results WBC 11.21, INR 1.2, Chloride 113, Cr 2.34 (baseline 1.77), BUN 22, Glucose 146, Ca 10.3, TSH 5.47, free T4 1.03. UA negative nitrites and WBC, Otherwise unremarkable CBC/CMP Diagnostic Findings CT SCAN OF THE BRAIN WITHOUT IV CONTRAST IMPRESSION: There is no hemorrhage, mass effect, or evidence of acute territorial ischemia by CT criteria. SINGLE VIEW CHEST IMPRESSION: No active disease in the chest. ECG Indication: altered mental status Rate (beats per minute): 68 Rhythm: normal sinus Findings: + other (T wave flattening in lateral leads) and + Q waves (inferior leads) Comparison ECG Date: from (02/27/2008) Change: the following changes noted (ischemic changes noted above are new) Code Status & VTE Plan Code Status Full as per patient wishes VTE Prophylaxis Plan VTE Prophylaxis will be ordered: Yes PG Care Time/CCT Total # of Minutes Spent Total Time Spent with Patient: Total time spent is greater than 50% in coordination of care (as documented) at patient's floor/unit and/or counseling patient: Coding Level of Care Code 82768 Initial Inpt Care Lvl 3 Diagnoses Syncope R55 Syncope type: unspecified Acute dehydration E86.0 CKD (chronic kidney disease), stage III N18.3 Fatigue R53.82 Fatigue type: chronic, unspecified Abnormal liver ultrasound R93.2 HTN (hypertension) I10 Hypertension type: essential hypertension Depression F33.9 Depression Type: major depressive disorder Major depression recurrence: recurrent Active/Remission status: currently active Major depression episode severity: unspecified GERD (gastroesophageal reflux disease) K21.9 Esophagitis presence: without esophagitis DVT prophylaxis Z29.9 Discharge planning issues Z02.9 (1) Fatigue Fatigue type: chronic, unspecified Qualified Code(s): R53.82 - Chronic fatigue, unspecified (2) Depression Depression Type: major depressive disorder Major depression recurrence: recurrent Active/Remission status: currently active Major depression episode severity: unspecified Qualified Code(s): F33.9 - Major depressive disorder, recurrent, unspecified (3) Syncope Syncope type: unspecified Qualified Code(s): R55 - Syncope and collapse (4) GERD (gastroesophageal reflux disease) Esophagitis presence: without esophagitis Qualified Code(s): K21.9 - Gastro- esophageal reflux disease without esophagitis (5) HTN (hypertension) Hypertension type: essential hypertension Qualified Code(s): I10 - Essential (primary) hypertension
[2019-05-09] MEDS ORDERED: ONDANSETRON INJ 2 MG/ML 2 ML VIAL IV PRN (20:27)
[2019-05-09] MEDS ORDERED: ACETAMINOPHEN 325 MG TAB PO PRN (20:27)
[2019-05-09] MEDS: LACTATED RINGER'S 1,000 ML IV SCH (20:59)
[2019-05-09] MEDS: HEPARIN SOD 5,000 UNIT/0.5 ML VIAL SQ SCH (21:03)
[2019-05-09] MEDS: buPROPion HCl 100 MG TABLET PO SCH (21:04)
[2019-05-09] MEDS ORDERED: PNEUMOCOCCAL ADMINISTRATION CHARGE ONE (21:15)
[2019-05-09] MEDS ORDERED: PNEUMOCOCCAL POLYSACCHARIDES 25 MCG/0.5 ML VIAL/SYR IM ONE (21:15)
[2019-05-10] MEDS: LACTATED RINGER'S 1,000 ML IV SCH ×2 (04:40→14:23)
[2019-05-10 06:22] LABS: Basophils # (auto) 0.02 K/uL (0-0.2); Basophils % (auto) 0.2 %; Eosinophils # (auto) 0.13 K/uL (0-0.5); Eosinophils % (auto) 1.4 %; Hematocrit (blood only) 39.6 % (37-47); Hemoglobin 12.5 g/dL (12.0-16.0); Immature Granulocytes # (auto) 0.02 K/uL (0.00-0.02); Immature Granulocytes % (auto) 0.2 %; Lymphocytes # (auto) 2.55 K/uL (1.2-3.4); Lymphocytes % (auto) 28.1 %; Mean Corpuscular Hgb Conc 31.6 g/dL (32-36); Mean Corpuscular Volume 88.8 fL (80-100); Mean Platelet Volume 9.1 fL (7.4-10.4); Monocytes % (auto) 6.6 %; Neutrophils # (auto) 5.76 K/uL (1.4-6.5); Neutrophils % (auto) 63.5 %; Platelet Count 194 K/uL (130-400); RDW Coefficient of Variation 14.5 % (11.5-14.5); RDW Standard Deviation 46.8 fL (36.4-46.3); Red Blood Count 4.46 M/uL (4.2-5.4); White Blood Count 9.08 K/uL (4.8-10.8)
[2019-05-10 06:58] LABS: Alanine Aminotransferase 23 U/L (12-78); Albumin Level 2.9 gm/dl (3.4-5.0); Aspartate Aminotransferase 21 U/L (15-37); BUN Creatinine Ratio 10.1 (10-20); Blood Urea Nitrogen 20 mg/dl (7-18); Calcium 9.2 mg/dl (8.5-10.1); Carbon Dioxide 22 mmol/L (21-32); Chloride 114 mmol/L (98-107); Creatinine Clr Calc Pharmacy 26.3 ml/min; Est GFR (African American) 27.9; Est GFR (Non-African American) 24.1; Glucose 102 mg/dl (70-99); Potassium 4.1 mmol/L (3.5-5.1); Sodium 142 mmol/L (136-145)
[2019-05-10 07:03] LABS: Albumin Globulin Ratio 0.9 (0.9-2); Alkaline Phosphatase 93 U/L (45-117); Bilirubin,Total 0.5 mg/dl (0.2-1); Globulin 3.4 gm/dl (2.5-4.0); Total Protein 6.3 gm/dl (6.4-8.2); Troponin I < 0.015 ng/ml (0-0.045)
[2019-05-10] MEDS ORDERED: CINNAMON BARK 500 MG PO SCH (09:00)
[2019-05-10] MEDS ORDERED: NON-FORMULARY MEDICATION (Coenzyme Q10 200 MG) PO SCH (09:00)
[2019-05-10] MEDS ORDERED: NON-FORMULARY MEDICATION (Turmeric 400 MG) PO SCH (09:00)
[2019-05-10] MEDS: CHOLECALCIFEROL 1,000 UNITS 25 MCG TAB PO SCH (09:36)
[2019-05-10] MEDS: MULTIVITAMIN TAB PO SCH (09:36)
[2019-05-10] MEDS: PANTOprazole 40 MG TAB PO SCH (09:36)
[2019-05-10] MEDS: FLUTICASONE PROPIONATE NA SPR 16 GM BTL SCH (09:37)
[2019-05-10] MEDS: buPROPion HCl 100 MG TABLET PO SCH ×2 (09:37→20:22)
[2019-05-10] MEDS: ATORVASTATIN 40 MG TAB PO SCH (09:37)
[2019-05-10] MEDS: HEPARIN SOD 5,000 UNIT/0.5 ML VIAL SQ SCH ×2 (09:38→20:17)
--- NOTE | 2019-05-10 14:11 | Electrocardiogram Report ---
Test Reason : Blood Pressure : / mmHG Vent. Rate : 068 BPM Atrial Rate : 068 BPM P-R Int : 192 ms QRS Dur : 072 ms QT Int : 416 ms P-R-T Axes : 000 -19 154 degrees QTc Int : 442 ms Normal sinus rhythm Inferior infarct , age undetermined Abnormal ECG When compared with ECG of 27-FEB-2008 13:07, Inferior infarct is now Present Nonspecific T wave abnormality now evident in Lateral leads Confirmed by Buck Fleming ([id number]) on 05/10/2019 2:11:00 PM Referred By: REFERRED SELF Confirmed By:Buck Fleming
[2019-05-10] MEDS: lisinopriL 20 MG TAB PO SCH (14:23)
--- NOTE | 2019-05-10 15:21 | Hospitalist Progress Note ---
Date of Service May 10, 2019 Assessment & Plan (1) Syncope: No events on monitor . Orthostatics qshift - wnl - dc IVF and resume lisinopril Will order echo, CT head wnl Leukocytosis resolved - likely hemoconcentration related due to dehydration Unclear if patient actually lost consciousness as she does not remember the point at which her test design engineer came over to her on the stairs. She does remember getting lightheaded and sitting down on the steps. (2) Acute dehydration: Elevated Ca, Cr and BUN suggestive of dehydration - patient had been cleaning all day at home and had not taken much po since the morning Creatinine now around baseline (3) CKD (chronic kidney disease), stage III: Borderline CKD stage III/IV at baseline. Acutely elevated creatinine but significantly raised enough for OZZIE but see dehydration as above. Mild pelvocaliectasis of right renal collecting system noted on US in April however no CVA tenderness on exam or urinary Sx therefore will defer CT A/P w/o contrast unless creatinine does not improve with gentle hydration (4) Fatigue: Improved VitD level low at 28 - will supplement Outpatient sleep study without significant apnea Patient reported on admission that depression was well controlled (5) Abnormal liver ultrasound: Hepatic steatosis vs. fibrosis on recent O/P US. LFTs unremarkable. Plt 221. INR 1.2. Consider O/P fibrosure. Follow with pcp (6) HTN (hypertension): Hold lisinopril pending orthostatics in AM following adequate hydration. (7) Depression: Continue bupropion 100mg BID (8) GERD (gastroesophageal reflux disease): PPI PRN (9) DVT prophylaxis: Heparin 5000 units BID (10) Discharge planning issues: PT/OT - patient refused, did not feel she needed evaluated Will likely be able to dc am if echo and telemetry is normal overnight Subjective Ms. Wolf is feeling better, no events on monitor. Has been somewhat hypertensive today ROS Constitutional: no chills, aches, sweats or fever Respiratory: no sob,cough, sputum, or wheezing Cardiac: no chest pain, palpitations, edema, orthopnea or lightheadedness GI: no abdominal pain, nausea, vomiting, diarrhea or constipation : no dysuria or hesitancy Extremities: no joint pain or weakness Skin: no rash All other systems reviewed and negative Physical Exam Physical Exam: General: no distress Eyes: normal inspection, PERLL Respiratory: chest non tender, clear to auscultation, normal breath sounds, no respiratory distress, no accessory muscle use Cardiac: regular rate and rhythm, no rub or gallop, no murmur, no edema, no jvd GI/: active bowel sounds, no abd pain or tenderness, soft, non distended Extremities: normal range of motion, normal strength, non tender Neuro/Psych: alert and oriented x 3, normal mood and affect, CN II - XII intact Skin: normal color, dry Results & Data ([facility]) Vital Signs (Past 12 Hours) Vital Signs Temp Pulse Pulse Resp BP BP Pulse Ox 05/10/19 14:58 72 05/10/19 07:36 74 05/10/19 07:19 37.1 C 75 16 115/69 95 05/10/19 04:05 36.7 C 71 20 120/75 97 PG Care Time/CCT Total # of Minutes Spent Total Time Spent with Patient: Total time spent is greater than 50% in coordination of care (as documented) at patient's floor/unit and/or counseling patient: Coding Level of Care Code 98735 Subseq Hosp Care Lvl 2 Diagnoses Syncope R55 Syncope type: unspecified Acute dehydration E86.0 CKD (chronic kidney disease), stage III N18.3 Fatigue R53.82 Fatigue type: chronic, unspecified Abnormal liver ultrasound R93.2 HTN (hypertension) I10 Hypertension type: essential hypertension Depression F33.9 Depression Type: major depressive disorder Major depression recurrence: recurrent Active/Remission status: currently active Major depression episode severity: unspecified GERD (gastroesophageal reflux disease) K21.9 Esophagitis presence: without esophagitis DVT prophylaxis Z29.9 Discharge planning issues Z02.9 (1) Syncope Syncope type: unspecified Qualified Code(s): R55 - Syncope and collapse (2) Fatigue Fatigue type: chronic, unspecified Qualified Code(s): R53.82 - Chronic fat igue, unspecified (3) HTN (hypertension) Hypertension type: essential hypertension Qualified Code(s): I10 - Essential (primary) hypertension (4) Depression Depression Type: major depressive disorder Major depression recurrence: recurrent Active/Remission status: currently active Major depression episode severity: unspecified Qualified Code(s): F33.9 - Major depressive disorder, recurrent, unspecified (5) GERD (gastroesophageal reflux disease) Esophagitis presence: without esophagitis Qualified Code(s): K21.9 - Gastro- esophageal reflux disease without esophagitis
--- NOTE | 2019-05-10 16:27 | XCELERA ---
[id number] [id number]
[2019-05-10] MEDS ORDERED: Nursing to Pharmacy Communication ONE (20:24)
[2019-05-10] MEDS ORDERED: buPROPion HCl 100 MG TABLET PO SCH (21:00)
[2019-05-11 07:15] LABS: Basophils # (auto) 0.03 K/uL (0-0.2); Basophils % (auto) 0.4 %; Hematocrit (blood only) 37.6 % (37-47); Hemoglobin 12.2 g/dL (12.0-16.0); Immature Granulocytes # (auto) 0.01 K/uL (0.00-0.02); Immature Granulocytes % (auto) 0.1 %; Lymphocytes # (auto) 3.08 K/uL (1.2-3.4); Lymphocytes % (auto) 40.8 %; Mean Corpuscular Hemoglobin 28.4 pg (25-34); Mean Corpuscular Hgb Conc 32.4 g/dL (32-36); Mean Corpuscular Volume 87.4 fL (80-100); Mean Platelet Volume 8.6 fL (7.4-10.4); Monocytes # (auto) 0.58 K/uL (0.11-0.59); Monocytes % (auto) 7.7 %; Neutrophils # (auto) 3.55 K/uL (1.4-6.5); Platelet Count 199 K/uL (130-400); RDW Coefficient of Variation 14.6 % (11.5-14.5); RDW Standard Deviation 46.5 fL (36.4-46.3); White Blood Count 7.55 K/uL (4.8-10.8)
[2019-05-11 07:46] LABS: Albumin Level 2.8 gm/dl (3.4-5.0); BUN Creatinine Ratio 9.8 (10-20); Calcium 9.2 mg/dl (8.5-10.1); Creatinine Clr Calc Pharmacy 27.3 ml/min; Est GFR (African American) 28.6; Est GFR (Non-African American) 24.7; Potassium 4.1 mmol/L (3.5-5.1)
[2019-05-11 07:49] LABS: Albumin Globulin Ratio 0.9 (0.9-2); Bilirubin,Total 0.3 mg/dl (0.2-1); Globulin 3.2 gm/dl (2.5-4.0)
[2019-05-11] MEDS ORDERED: buPROPion HCl 100 MG TABLET PO SCH (09:00)
[2019-05-11] MEDS ORDERED: CHOLECALCIFEROL 1,000 UNITS 25 MCG TAB PO SCH (09:00)
[2019-05-11] MEDS: MULTIVITAMIN TAB PO SCH (09:13)
[2019-05-11] MEDS: lisinopriL 20 MG TAB PO SCH (09:13)
[2019-05-11] MEDS: ATORVASTATIN 40 MG TAB PO SCH (09:13)
[2019-05-11] MEDS: FLUTICASONE PROPIONATE NA SPR 16 GM BTL SCH (09:14)
[2019-05-11] MEDS: HEPARIN SOD 5,000 UNIT/0.5 ML VIAL SQ SCH (09:14)
[2019-05-11] MEDS: PANTOprazole 40 MG TAB PO SCH (09:14)
[2019-05-11] MEDS: CHOLECALCIFEROL 1,000 UNITS 25 MCG TAB PO SCH (09:14)
--- NOTE | 2019-05-11 09:42 | Discharge Summary ---
Date of Service May 11, 2019 Admission HPI Per Admitting Provider Mignon Wolf is a 79 year old female with PMHx CKD who presents to the ER after a syncopal event at home witnessed by her ribbon cleaner who called EMS. She was sitting on her steps writing a check when she started getting light-headed for a few minutes before losing consciousness. She felt dazed and mildly confused after the fall but regained back to her normal self while at her house. She denies any dizziness currently. No chest pain, shortness of breath, palpitations, claudication, orthopnea or PND. No urinary Sx. No URI Sx, fever or chills. No abdominal pain, nausea, vomiting, constipation, diarrhea or melena. Currently in the ER her only concern if feeling fatigued however this is at her baseline and she has been to see her PCP about this on her last at least 3 visits with a presumed diagnosis of depression causing her fatigue and switch from Zoloft to Wellbutrin which she reports if helping. Principal Diagnosis Near Syncope Discharge Exam Constitutional WD/WN, vitals as above Eyes right pupil non reactive - patient reports this is baseline Respiratory normal respiratory effort, lungs clear to auscultation Cardiovascular RRR, no murmur, no edema Gastrointestinal (Abdomen) normal bowel sounds, soft, nontender, no hepatosplenomegaly Musculoskeletal no cyanosis or clubbing, extremities motor strength 5/5 Skin no rashes, warm and dry Neurologic CN's II-XI intact bilaterally, moves all extremities and awake Psychiatric A+Ox3, euthymic affect Discharge Data Allergies Allergy/AdvReac Type Severity Reaction Status Date / Time Penicillins Allergy Mild UNKNOWN Verified 05/09/19 16:50 Iodinated Contrast Media Allergy Unknown TOLD BY MD Verified 05/09/19 16:50 NOT TO USE CONTRAST DYE Halogenated Anesthetics AdvReac Unknown INTUBATION Uncoded 05/09/19 16:50 GASES-PROLONGED RECOVERY Consultations 05/09/19 20:27 Consult Case Management - Discharge Planning Routine Ordered Studies 05/09/19 16:11 CT head/brain wo con Stat Hospital Course (1) Syncope: No events on monitor . Orthostatics - wnl Echo without wall motion abnormalities, normal EF, mild tricuspid regurg CT head wnl Leukocytosis resolved - likely hemoconcentration related due to dehydration Unclear if patient actually lost consciousness as she does not remember the point at which her loom doffer came over to her on the stairs. She does remember getting lightheaded and sitting down on the steps. (2) Acute dehydration: Elevated Ca, Cr and BUN suggestive of dehydration - patient had been cleaning all day at home and had not taken much po since that morning Creatinine now around baseline at 1.9 (3) CKD (chronic kidney disease), stage III: with acute kidney injury Mild pelvocaliectasis of right renal collecting system noted on US in April however no CVA tenderness on exam or urinary Sx therefore will defer CT A/P w/o contrast - creatinine appears to be around baseline (4) Fatigue: Improved VitD level low at 28 - patient reports she has not consistently been taking her vitamin D supplement - encouraged to continue and recheck level to ensure absorption Outpatient sleep study without significant apnea Patient reported on admission that depression was well controlled (5) Abnormal liver ultrasound: Hepatic steatosis vs. fibrosis on recent O/P US. LFTs unremarkable. Plts stable . INR 1.2. Consider O/P fibrosure. Follow with pcp (6) HTN (hypertension): continue home lisinopril (7) Depression: Continue bupropion 100mg BID (8) GERD (gastroesophageal reflux disease): PPI PRN (9) DVT prophylaxis: Heparin 5000 units BID inpatient (10) Discharge planning issues: PT/OT - patient refused, did not feel she needed evaluated, ambulating around the room without difficulty Total Time Total Time Spent Total Time Spent (In Minutes): greater than 30 minutes Discharge Plan Discharge Items Patient Disposition: Home - Self-Care Reason For Visit: SYNCOPE Discharge Diagnosis: Syncope Activity: Resume your previous activity Non-emergency contact: Primary Care Provider Call non-emergency contact if: you have any medication questions Follow-up/Referrals: Judah Forbes MD [Primary Care Provider] - 05/18/19 1:00 pm (within a week. Your appointment is with Giselle Todd at Dr Forebs's office. If you need to change this appointment please call [phone].) Diet: Regular Addtl Attending Provider Instructions: Assessment & Plan (1) Syncope: No events on monitor, your echo was normal except for some mild tricuspid regurgitation (heart valve has some back flow of blood). This is not a concerning finding and is just something for your doctor to watch Orthostatics qshift - wnl - dc IVF and resume lisinopril If you become lightheaded, lay down and prop up your feet, drink some water. If the spell does not pass within 5-10 minutes return to the ED. If you are experiencing these events more frequently please call your doctor to follow up. If you have any chest pain, shortness of breath, palpitations or other concerning symptoms in addition to the dizziness please return to the ED. (2) Acute dehydration: Resolved. Remember to stay hydrated especially when engaging in vigorous or strenuous activities (3) CKD (chronic kidney disease), stage III: Your creatinine is now about at your baseline, it was elevated likely due to dehydration. Please follow up with Dr. Forbes. (4) Low vitamin D level Your vitamin D serum level was 28.6, normal is 30-100 Your current dosing is appropriate, be sure you are taking it every day. You may want to have this level rechecked in a month or so after consistently supplementing to make sure you are absorbing the oral supplement. Pending Studies at Discharge: No Stand-Alone Forms: [facility], Smoking Cessation Medications and DC Order Prescriptions: Continued bupropion HCl 100 mg tablet 100 mg PO BID Qty: 60 RF: 3 lisinopril 20 mg tablet 20 mg PO DAILY Qty: 90 RF: 3 mometasone 50 mcg/actuation spray,non-aerosol 2 sprays intranasal DAILY Qty: 51 RF: 0 albuterol sulfate 90 mcg/actuation HFA aerosol inhaler 2 puffs inhalation Q4H PRN (Reason: shortness of breath or wheezing) Qty: 1 RF: 0 omeprazole 20 mg tablet,delayed release (DR/EC) 20 mg PO DAILY PRN (Reason: HEARTBURN/INDIGESTION) Qty: 90 RF: 0 atorvastatin 40 mg tablet 40 mg PO DAILY Qty: 90 RF: 0 multivitamin [Daily Multi-Vitamin] tablet 1 tab PO DAILY RF: 0 coenzyme Q10 200 mg capsule 200 mg PO DAILY RF: 0 cholecalciferol (vitamin D3) 2,000 unit tablet 2,000 units PO DAILY RF: 0 cinnamon bark 500 mg Capsule 500 mg PO DAILY RF: 0 turmeric 400 mg Capsule 400 mg PO DAILY RF: 0 Discharge Orders: Discharge Order (Routine); Ordered 05/11/19 Ordered By: Pattie Richardson Admission Data Admit Date/Time: 05/09/19 19:34 Attending Provider: Pancho Gunn Admit Provider: Judah John Primary Care Provider: Judah Forbes Other Interventions: Discharge Summary Assessment (RN) Last Done: 05/11/19 10:21 DC Date/Time DO NOT enter until pt leaves facility: 05/11/19 11:07 Supervising Physician Co-Signing Physician Notes I supervised Pattei Richardson NP on this patient's care. I examined the patient today independently of her. I discussed the plan of care with her with the plan being as written in her note except for any following changes/exceptions: None. Feeling well. This really does sound like a vasovagal pre-syncope. Discussed what to do if she has another episode: If she gets lightheaded or dizzy, sit down, elevate legs, drink cold water and use a cold compress. If she passes out, has chest pain, shortness of breath, dizzines, or lightheadedness, she needs to call her PCP (or 9-1-1) or go to the hospital. She was in agreement with this plan. Coding Level of Care Code D/C Day Management >30 mins Diagnoses Syncope R55 Syncope type: unspecified Acute dehydration E86.0 CKD (chronic kidney disease), stage III N18.3 Fatigue R53.82 Fatigue type: chronic, unspecified Abnormal liver ultrasound R93.2 HTN (hypertension) I10 Hypertension type: essential hypertension Depression F33.9 Active/Remission status: currently active Depression Type: major depressive disorder Major depression episode severity: unspecified Major depression recurrence: recurrent GERD (gastroesophageal reflux disease) K21.9 Esophagitis presence: without esophagitis DVT prophylaxis Z29.9 Discharge planning issues Z02.9
[2019-05-11] MEDS ORDERED: POLYETHYLENE (MIRALAX) 17 GM PACK PO ONE (10:00)
== END 2019-05-11 11:07 | disposition home or self-care (01) ==
LOC: ED 15:53 → 2W 15:53 → SUATTDRO 19:34 → 2W 20:00